=== PATIENT | female | born 1985 | race Caucasian/White ===

== ENCOUNTER → 2020-07-02 10:10 | Outpatient (CLI) | payer OTHER, SELFPAY ==
--- NOTE | ~2020-07-02 | US_ITS ---
EXAMINATION: US transvaginal DATE: 07/02/2020 10:54 INDICATION: Irregular menstruation. Comparison:No prior studies for comparison. TECHNIQUE: Multiple transabdominal and endovaginal sonographic images of the pelvis performed. FINDINGS: The uterus measures 8.5 x 4.5 x 5.2 cm. The endometrial complex measures 6 mm. The right ovary measures 2.2 x 1.9 x 3.3 cm and the left ovary measures 4 x 2.7 x 2.8 cm. There is a 1.7 cm left ovarian cyst. There is no free fluid in the pelvis. There are no abnormal masses seen on either side. IMPRESSION: 1. Left ovarian cyst measuring 1.7 cm. Reviewed, dictated and finalized at location A.
--- NOTE | ~2020-07-02 | US_ITS ---
US thyroid INDICATION: Nontoxic goiter. TECHNIQUE: Real-time sonographic images of the thyroid gland were obtained. COMPARISON: No prior studies for comparison. FINDINGS: The right thyroid lobe measures 5 x 1.5 x 1.9 cm. The left thyroid lobe measures 4.7 x 1.3 x 1.3 cm. There is normal echotexture and echogenicity throughout the thyroid gland. No discrete nod ules identified. Normal vascular flow is present. IMPRESSION: 1. Normal thyroid without discrete nodule or abnormal vascularity. Reviewed, dictated and finalized at location A.
== END ==
PROVIDERS: PCP Family Medicine; Visit Provider Internal Medicine Endocrinology, Diabetes & Metabolism
DX: N92.6 Irregular menstruation, unspecified (principal); N83.202 Unspecified ovarian cyst, left side
CPT/HCPCS: 76536; 76830

== ENCOUNTER 2022-04-16 11:54 | Emergency (ER) | payer OTHER, SELFPAY ==
[2022-04-16 12:03] VITALS: BP 90/56; PULSE 80; RESP 12; TEMP 37.5; O2SAT 99
[2022-04-16 12:04] VITALS: BP 90/56; PULSE 80; RESP 12; TEMP 37.5; O2SAT 99
--- NOTE | 2022-04-16 12:13 | ED.URI ---
HPI - URI/Sore Throat General Chief Complaint: Upper Respiratory Infection Stated Complaint: sore throat, ear pain,fever Time Seen by Provider: 04/16/22 12:03 Source: patient Mode of arrival: ambulatory Limitations: no limitations History of Present Illness HPI Narrative: Patient presents today complaining of a 2-day history of body aches, sore throat, ear pain, low-grade fever up to 99. Denies cough, congestion, rhinorrhea, shortness of breath. Patient took a home COVID-19 test this morning that was negative. She currently rates her pain 4/10 and has been taking Tylenol and ibuprofen at home with mild relief. Related Data Home Medications Medication Instructions Recorded Confirmed citalopram 20 mg tablet (Celexa) 20 mg PO DAILY 04/16/22 04/16/22 spironolactone 50 mg tablet 50 mg PO DAILY 04/16/22 04/16/22 Allergies Allergy/AdvReac Type Severity Reaction Status Date / Time No Known Allergies Allergy Unverified 04/16/22 12:03 Review of Systems Review of Systems: CONSTITUTIONAL: Denies chills, or sweats.+ Body aches, fever EYES: Denies visual changes, redness, or discharge. ENT: Denies rhinorrhea, congestion, or otalgia.+ Sore throat CARDIOVASCULAR: Denies chest pain, palpitations, or edema. RESPIRATORY: Denies cough or dyspnea. GASTROINTESTINAL: Denies abdominal pain, nausea, vomiting, or diarrhea. GENITOURINARY: Denies dysuria or hematuria. SKIN: Denies rash, itching, or wounds. MUSCULOSKELETAL: Denies back pain, joint pain, or myalgia. NEUROLOGIC: Denies headache, numbness, tingling, or weakness. PSYCH: Denies depression or anxiety. PMFSH Comments At time of signature, I have reviewed and agree with nursing past medical, surgical, social and family history unless otherwise noted. Please see nursing chart for further information. There is no relevant family history pertinent to the presenting complaint Exam Narrative: GENERAL: Well-appearing, well-nourished, and in no acute distress. HEAD: Normocephalic, atraumatic. EYES: EOMI. No redness or drainage. Conjunctivae normal. ENT: Mucous membranes pink and moist. Nares clear. No rhinorrhea. Bilateral middle ear effusions without evidence of bacterial infection. Throat normal with small amount of postnasal drainage Uvula midline. No edema or exudate. Tonsils 2+ NECK: Normal AROM. Supple. Bilateral tonsillar lymphadenopathy. CHEST: No respiratory distress. Clear to auscultation. HEART: Regular rate and rhythm. No murmur appreciated. Normal peripheral pulses. EXTREMITIES: Normal range of motion. No edema. SKIN: Warm, dry, no rash. Capillary refill normal. Normal skin turgor. NEURO: No focal deficits. Alert and oriented x3. Gait steady. PSYCH: Normal affect. No signs of depression or anxiety. Course Course Emergency Course: Declines strep swab. Level of Care: Express Care Visit Vital Signs Vital signs: Vital Signs Temperature 99.5 F 04/16/22 12:03 Pulse Rate 80 04/16/22 12:03 Respiratory Rate 12 04/16/22 12:03 Blood Pressure 90/56 L 04/16/22 12:03 Pulse Oximetry 99 04/16/22 12:03 Oxygen Delivery Room Air 04/16/22 12:03 Temperature 99.5 F 04/16/22 12:04 Pulse Rate 80 04/16/22 12:04 Respiratory Rate 12 04/16/22 12:04 Blood Pressure 90/56 L 04/16/22 12:04 Pulse Oximetry 99 04/16/22 12:04 Oxygen Delivery Room Air 04/16/22 12:04 Reviewed MDM - URI/Sore Throat Differential Diagnosis Differential diagnosis: Likely upper respiratory infection, otitis media, viral infection, influenza, pharyngitis and other (COVID-19) Lab Data Attestation: I reviewed the patient's lab results. Labs: Influenza A Screen Negative Reference Range: Negative Influenza B Screen Negative Reference Range: Negative Critical Care Time Critical Care Time Critical Care Time: No Discharge Plan Disch
== END 2022-04-16 12:33 | disposition home or self-care (01) ==
PROVIDERS: Emergency Provider Nurse Practitioner
DX: B34.9 Viral infection, unspecified (principal); F32.A Depression, unspecified
CPT/HCPCS: 87804; 99203; 99213; G0463

== ENCOUNTER 2023-11-10 13:12 | Emergency (ER) | payer OTHER, SELFPAY ==
[2023-11-10 13:17] VITALS: BP 82/62; PULSE 93; RESP 16; TEMP 36.4; O2SAT 100
[2023-11-10 13:20] VITALS: BP 101/70; PULSE 103
--- NOTE | 2023-11-10 13:36 | ED.GENADULT ---
HPI - General Adult General Chief complaint: Upper Respiratory Infection Stated complaint: Flu symptoms Source: patient, RN notes reviewed and old records reviewed Mode of arrival: ambulatory Limitations: no limitations History of Present Illness HPI narrative: 38-year-old female presents to [facility] with complaints cough, congestion, fatigue, myalgias that started 2 days ago. Patient taking dwal-ryw-erravvd medications with little relief. Patient denies chest pain, shortness of breath, dizziness, weakness Related Data Home Medications Medication Instructions Recorded Confirmed citalopram 20 mg tablet (Celexa) 20 mg PO DAILY 04/16/22 04/16/22 spironolactone 50 mg tablet 50 mg PO DAILY 04/16/22 04/16/22 drospirenone (contraceptive) 4 mg 1 tablet PO DAILY 08/21/22 (28) tablet (Slynd) Allergies Allergy/AdvReac Type Severity Reaction Status Date / Time No Known Allergies Allergy Verified 11/10/23 13:40 Review of Systems Constitutional: Constitutional: Reports no additional constitutional complaints, Reports body ache(s), Denies chills, Denies fatigue, Denies fever(s) and Denies headache(s) Eyes: Eyes: Reports no additional eye complaints and Denies blurry vision ENT: Reports system reviewed and no additional complaints, except as documented, Denies vertigo, Denies dizziness, Denies ear discharge, Denies otalgia, Denies facial pain, Denies headache(s), Reports nasal congestion, Denies nasal discharge, Denies sinus pain, Denies sinus pressure and Denies sore throat Cardiovascular: Cardiovascular: Reports no additional cardiovascular complaints, Denies chest pain, Denies chest pain at rest, Denies rapid heart rate and Denies dyspnea Respiratory: Respiratory: Reports no additional respiratory complaints, Reports chest congestion, Reports cough, Denies pain on inspiration, Denies pain with cough and Denies dyspnea Gastrointestinal: Gastrointestinal: Denies abdominal pain, Denies diarrhea, Denies nausea and Denies vomiting Integumentary/Breasts: Skin/Breast: Denies rash Neurologic: Reports system reviewed and no additional complaints, except as documented, Denies vertigo, Denies dizziness and Denies headache(s) Endocrine: Endocrine: Denies fatigue [facility] Past Medical History Medical History Abnormal uterine bleeding Anxiety Depression Surgical History Surgical History H/O melanoma excision History of breast lift Family History Family History Mother Diabetes mellitus Heart disease Father Diabetes mellitus Social History Social History Smoking status: Never smoker Alcohol intake: never Substance use: never Living arrangements: with family Occupation/Education: occupation Gender identity (if verbalized by the patient): Female Sexual Orientation (if Verbalized by the Patient): Straight or Heterosexual Comments At the time of my signature, I reviewed and agree with the nursing past medical, surgical, social, and family history. There is no relevant family history pertinent to the patient complaint. Exam Const: General: cooperative, healthy appearing, no acute distress and well nourished Nutritional Appearance: well nourished Orientation/consciousness: patient oriented x3 Limitations: no limitations HENMT: Head: normal to inspection and normocephalic Ears: external ears normal, TM's normal bilaterally, mastoids normal and Abnormal EAC present Face/Nose/Sinus: normal facial exam Face and sinus: normal facial exam Mouth: Yes Normal oral and palatal mucosa present, Yes oropharynx normal and Yes moist mucous membranes Throat: posterior oropharynx normal, tonsils normal, uvula midline and no uvular edema Eyes: General: appearance normal, both eyes and all related st
== END 2023-11-10 13:44 | disposition home or self-care (01) ==
PROVIDERS: Emergency Provider Registered Nurse; PCP Internal Medicine
DX: U07.1 COVID-19 (principal)
CPT/HCPCS: 87426; 87804; 99213; G0463

== ENCOUNTER → 2024-05-18 09:10 | Outpatient (REF) | payer OTHER, SELFPAY | LOC: ANHLAB 09:10 | PROVIDERS: PCP Internal Medicine; Visit Provider Plastic Surgery | DX: D22.5 Melanocytic nevi of trunk (principal) | CPT/HCPCS: 88305 ==

== ENCOUNTER 2025-06-08 12:17 | Outpatient (CLI) | payer OTHER, SELFPAY ==
--- NOTE | 2025-06-08 | ECG_ITS ---
Test Date: 2025-06-08 12:42:19 Measurements Intervals [place] Rate: 80 P: 57 OH: 137 QRS: 84 QRSD: 84 T: 57 QT: 343 QTc: 397 Interpretive Statements SINUS RHYTHM POSSIBLE RIGHT VENTRICULAR CONDUCTION DELAY [RSR (QR) IN V1/V2] BORDERLINE ECG No previous ECG available for comparison Electronically Signed On 06-08-2025 17:17:16 CDT by Reid Kelley M.D.
--- OUTSIDE RECORDS SUMMARY | 2025-06-08 14:03 | XMS_ITS | Clinical Summary ---
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 2 Active traZODone (DESYREL) 50 mg tablet Take 1 tablet (50 mg total) by mouth nightly Active drospirenone, contraceptive, (Slynd) tablet tablet 1 each (4 mg total) 2 Active ALPRAZolam (XANAX) 0.5 mg tablet Take 1 tablet (0.5 mg total) by mouth daily as needed 2 Active spironolactone (ALDACTONE) 100 mg tablet Take 0.5 tablets (50 mg total) by mouth daily 2 Active cyclobenzaprine (FLEXERIL) 10 mg tabletIndicatio ns:Muscle Spasm Take 1 tablet (10 mg total) by mouth 2 (two) times a day as needed for muscle spasms 10 tablet 5 Active Active Problems No known active problems Encounters Date Type Department Care Team Description 05/03/2025 7:00 PM CDT Office Visit [facility] at [address] [address] Praveena Peralta NP Acute left flank pain (Primary Dx); Acute left-sided thoracic back pain from Last 3 Months Social History Tobacco Use Types Packs/Day Years Used Date Smoking Tobacco: Never Assessed Comments Unknown Sex and Gender Information Value Date Recorded Sex Assigned at Not on file Legal Sex Female 9:10 AM CRAS Gender Identity Not on file Sexual Orientation Not on file Obstetrics History Last Filed Vital Signs Vital Sign Reading Time Taken Comments Blood Pressure 98/64 05/03/2025 7:11 PM CDT Pulse 97 05/03/2025 7:11 PM CDT Temperature 36.7 C (98.1 F) 05/03/2025 7:11 PM CDT Respiratory Rate 18 05/03/2025 7:11 PM CDT Oxygen Saturation 99% 05/03/2025 7:11 PM CDT Inhaled Oxygen Concentration - - Weight 54.7 kg (120 lb 11.2 oz) 05/03/2025 7:11 PM CDT Height 165.1 cm (5' 5) 05/03/2025 7:11 PM CDT Body Mass Index 20.09 05/03/2025 7:11 PM CDT Plan of Treatment Health Maintenance Due Date Last Done Comments Cervical Cancer Screening 1987 Depression Screening 1987 Hepatitis C Screening 1987 Varicella Vaccines (1 of 2 - 13+ 2-dose series) 2000 Regular Well Visit/Exam 18-64 2005 HPV Vaccines (1 - 3-dose SCDM series) 2014 Covid-19 Vaccine (2024- season) 2025 01/07/2021, 12/10/2020 Influenza Vaccine (#1) 2025 , 07/24/2023, 06/06/2022, Additional history exists DTaP/Tdap/Td Vaccine (8 - Td or Tdap) 01/04/2027 01/04/2017, 09/23/2016, 02/23/2003, Additional history exists Hepatitis B Screening Completed 01/26/1997 , 08/25/1996, 07/24/1996 Pneumococcal vaccine <65 Aged Out No longer eligible based on patient's age to complete this topic Procedures Procedure Name Priority Date/Time Associated Diagnosis Comments POCT URINALYSIS DIPSTICK Routine 05/03/2025 7:29 PM CDT Acute left flank pain from Last 3 Months Results * POCT urinalysis dipstick (05/03/2025 7:29 PM CDT) Color, Urine, POC Yellow Clarity, ur, POC Clear Clear Glucose, ur, POC Negative Negative Bilirubin, ur, POC Negative Negative Ketones, ur, POC Negative Negative Specific [place], POC 1.030 1.003 - 1.030 Blood, ur, POC Negative Negative pH, ur, POC 6.0 5.0 - 8.0 Protein, ur, POC Negative Negative Urobilinogen, urine, POC 0.2 0.2 - 1.0 mg/dL Nitrite, ur, POC Negative Negative Leukocytes, ur, POC Negative Negative Lot Number [id number] Urine 05/03/2025 7:29 PM CDT Praveena Peralta NP POINT OF CARE TEST ORDERABLES Final Result from Last 3 Months Insurance [employer] Care Teams Top Loader Relationship Specialty Start Date End Date Nahid León MD [address] [id number] PCP - General Internal Medicine 07/06/24
--- OUTSIDE RECORDS SUMMARY | 2025-06-08 14:03 | XMS_ITS | Clinical Summary ---
Author Organization [employer] [facility] [employer] [address] Address [address] [place] [address] Care Team Providers Care A&P Mechanic Name Role Phone Nahid León MD Primary Care Provider [phone] Allergies No known active allergies Medications norgestimate-eth inyl estradioL (ORTHO TRI-CYCLEN) 0.18/0.215/0.25 mg-35 mcg (28) tablet Take 1 Tablet by mouth daily at bedtime. Active fluticasone propionate (FLONASE) 50 mcg/spray [place], Suspension nasal inhalerIndicatio ns:Allergic rhinitis, unspecified seasonality, unspecified trigger,Acute recurrent maxillary sinusitis,Head cold Flonase nasal spray 1-2 sprays each nostril twice a day x 7-10 days 16 Gram 11 06/03/2019 Active citalopram (CeleXA) 20 mg tabletIndication s:Anxiety state Take 1 Tablet (20 mg) by mouth daily. 90 Tablet 04/10/2022 Active amitriptyline (ELAVIL) 25 mg tablet Take 0.5 Tablets (12.5 mg) by mouth daily at bedtime. 30 Tablet 05/21/2022 Active ALPRAZolam (XANAX) 0.5 mg tabletIndication s:Anxiety and depression,Anxie ty state TAKE 1 /2 tab BY MOUTH qhs for 1 week, then 1/2 tab every other day for 1 week, then stop taking before bed and only take as needed for panic attack. 90 Tablet 05/21/2022 Active trazodone HCl (TRAZODONE ORAL) Take by mouth. Active SPIRONOLACTONE ORAL Take by mouth. Active Active Problems Problem Noted Date Diagnosed Date Anxiety and depression 05/21/2022 Insomnia 05/21/2022 Acne vulgaris 05/08/2018 Encounters Date Type Department Care Team Description 05/12/2025 External Device Data [facility] ABSTRACTION Provider, Abstract 05/11/2025 External Device Data [facility] ABSTRACTION Provider, Abstract 04/28/2025 External Device Data [facility] ABSTRACTION Provider, Abstract 04/27/2025 External Device Data [facility] ABSTRACTION Provider, Abstract 04/07/2025 External Device Data [facility] ABSTRACTION Provider, Abstract 04/06/2025 External Device Data [facility] ABSTRACTION Provider, Abstract 03/23/2025 External Device Data [facility] ABSTRACTION Provider, Abstract 03/16/2025 External Device Data [facility] ABSTRACTION Provider, Abstract 03/09/2025 External Device Data [facility] ABSTRACTION Provider, Abstract from Last 3 Months Immunizations Immunization Administration Dates Next Due (ADACEL/BOOSTRIX)(10 YR UP) TDAP VACCINE, 0.5ML, IM 09/23/2016 INFLUENZA VACCINE QUADRIVALENT 6 MOS UP IM 07/23 INFLUENZA VACCINE QUADRIVALENT 6 MOS UP PF IM Family History Medical History Relation Name Comments No Known Problems Brother No Known Problems Daughter No Known Problems Father Unknown Maternal Grandfather Unknown Maternal Grandmother No Known Problems Mother No Known Problems Paternal Grandmother No Known Problems Sister No Known Problems Son Colon Cancer Neg Hx Relation Name Status Comments Brother Alive Daughter Alive Father Alive Maternal Grandfather Maternal Grandmother Mother Alive Paternal Grandfather Alive Paternal Grandmother Alive Sister Alive Son Alive Social History Tobacco Use Types Packs/Day Years Used Date Smoking Tobacco: Never Smokeless Tobacco: Never Tobacco Cessation:Counseling Given: Not Answered Alcohol Use Standard Drinks/Week Comments No 0 (1 standard drink = 0.6 oz pur e alcohol) Feeling Safe Answer Date Recorded Are you in a relationship wi th someone who hurts you emotionally and/or physically? No 11/26/2023 Comments No Sex and Gender Information Value Date Recorded Sex Assigned at Not on file Legal Sex Female 9:58 AM DIFFERENTIAL TESTER Gender Identity Not on file Sexual Orientation Not on file Last Filed Vital Signs Vital Sign Reading Time Taken Comments Blood Pressure 108/66 11/20/2024 8:52 AM DIFFERENTIAL TESTER Pulse 77 11/26/2023 11:27 AM DIFFERENTIAL TESTER Temperature 36.2 C (97.1 F) 11/26/2023 11:11 AM DIFFERENTIAL TESTER Respiratory Rate 18 11/26/2023 11:27 AM DIFFERENTIAL TESTER Oxygen Saturation 100% 11/26/2023 11:27 AM DIFFERENTIAL TESTER Inhaled Oxygen Concentration - - Weight 55.3 kg (122 lb) 11/20/2024 8:52 AM DIFFERENTIAL TESTER Height 165.1 cm (5' 5) 11/20/2024 8:52 AM DIFFERENTIAL TESTER Body Mass Index 20.3 11/20/2024 8:52 AM DIFFERENTIAL TESTER Plan of Treatment Health Maintenance Due Date Last Done Comments HPV/Cotest (21-29) 2008 HPV VACCINES (1 - 3-dose SCD M series) 2014 HPV/Cotest (30-65) 2017 INFLUENZA VACCINE (#1) 2025 , 07/06/2020, 07/23/2019 COVID-19 Vaccine (2024-2 6 season) 2025 01/07/2021, 12/10/2020 DTAP/TDAP/TD VACCINES (8 - T d or Tdap) 01/04/2027 01/04/2017, 09/23/2016, 04/21/1992, Additional history exists CERVICAL CANCER SCREENING 01/26/2027 PAP SMEAR 01/26/2027 01/27/2024, 09/2021 (Previously completed), 03/23/2017 (Previously completed) HEPATITIS B VACCINES Completed 01/26/1997, 08/25/1996, 07/24/1996 Insurance [employer] [id number] Advance Directives For more information, please contact: [phone] * Full Code (Latest Code Status on File) Date Activated Date Inactivated Comments 11/26/2023 10:26 AM 11/26/2023 1:58 PM * Full Code Date Activated Date Inactivated Comments 09/19/2020 5:53 AM 09/19/2020 9:46 AM Care Teams A&P Mechanic Relationship Specialty Start Date End Date Nahid León MD [address] [facility] [address] [place] [address] PCP - General Internal Medicine 01/31/24
--- OUTSIDE RECORDS SUMMARY | 2025-06-08 14:03 | XMS_ITS | Encounter Summary ---
Author Organization [facility] Address [address] [facility] [place] [address] Care Team Providers Care Rail Maintenance Worker Name Role Phone Bob Zhang MD Primary Care Provider Encounter Details Date Type Department Care Team (Late st Contact Info) Description 05/17/2022 Lab Requisition [facility] Care D[facility] Lab [address] [facility] [address] [facility] [place] [address] Mariano Peter MD [address] [place] [address] Social History Tobacco Use Types Packs/Day Years Used Date Smoking Tobacco: Never Smokeless Tobacco: Never Alcohol Use Standard Drinks/Week Comments Never 0 (1 standard drink = 0.6 oz pur e alcohol) Comments No Sex and Gender Information Value Date Recorded Sex Assigned at Not on file Legal Sex Female 3:46 PM CDT Gender Identity Not on file Sexual Orientation Not on file documented as of this encounter Functional Status * Is person deaf or have serious hearing difficulty? Answer Date of Assessment Author No 03/15/2022 8:15 AM KRYSTLET Arelis Gomez RN * Is person blind or have serious difficulty seeing? Answer Date of Assessment Author No 03/15/2022 8:15 AM KRYSTLET Arelis Gomez RN * Does person have serious difficulty walking/climbing stairs? Answer Date of Assessment Author No 03/15/2022 8:15 AM KRYSTLET Arelis Gomez RN * Does person have difficulty dressing/bathing? Answer Date of Assessment Author No 03/15/2022 8:15 AM CDT Arelis Gomez RN * Does person have difficulty doing errands alone? Answer Date of Assessment Author No 03/15/2022 8:15 AM CDT Arelis Gomez RN documented as of this encounter Mental Status * Does person have difficulty concentrating/remembering/making decisions? Answer Entry Date Author No 03/15/2022 8:15 AM CDT Arelis Gomez RN documented in this encounter Plan of Treatment Not on file documented as of this encounter Procedures Procedure Name Priority Date/Time Associated Diagnosis Comments DERMATOPATHOLOGY Routine 05/15/2022 3:33 AM CDT documented in this encounter Results * DERMATOPATHOLOGY (05/15/2022 3:33 AM CDT) Case Report Dermatopathology Report Case: [id number] Authorizing Provider: Mariano Peter MD Collected: 05/15/2022 03:33 AM Ordering Location: [facility] DermPath Lab Received: 05/17/2022 07:25 AM Pathologist: Magdalene Galarza MD Specimens: A) - Skin, right upper arm B) - Skin, right flank 2 1:12 PM CDT DERMATOPATHOLOGY LABORATORY Final Diagnosis Specimen A. SKIN, right upper arm: SEBORRHEIC KERATOSIS, IRRITATED AND INFLAMED (L82.0) Specimen B. SKIN, right flank: SEBORRHEIC KERATOSIS, INFLAMED (L82.0) 2 1:12 PM CDT DERMATOPATHOLOGY LABORATORY at 1312 CDT Clinical History A-B: R/O Neoplasm 2 1:12 PM CDT DERMATOPATHOLOGY LABORATORY Gross Description Specimen A: Received is one formalin filled container labeled with the patient's name and designated right upper arm. The specimen consists of a shave biopsy measuring 5x5x1 mm. Jar 0. Specimen B: Received is one formalin filled container labeled with the patient's name and designated right flank. The specimen consists of a shave biopsy measuring 6x5x1 mm. Jar 0. 2 1:12 PM CDT DERMATOPATHOLOGY LABORATORY Microscopic Description Specimen A. SKIN, right upper arm: Sections show acanthosis, papillomatosis, hyperkeratosis, and squamous eddies. There is a lymphohistiocytic infiltrate within the papillary dermis. Specimen B. SKIN, right flank: There is hyperkeratosis, parakeratosis, papillomatosis, and acanthosis of the epidermis. There is a lymphohistiocytic infiltrate within the papillary dermis that is focally lichenoid. 2 1:12 PM CDT DERMATOPATHOLOGY LABORATORY Disclaimer An external and internal positive and negative controls are appropriate for the histochemical, immunohistochemical and immunofluorescence stain(s) in this case (if any), except where stated explicitly. The performance characteristics of the stain(s) cited in this report were developed and its performance characteristic determined by the Dermatopathology Laboratory at [facility], directed by Dr. Kev Rodriguez. These tests need not be, and therefore are not, approved by the [place] Food and Drug Administration. The tests are used for clinical purposes. Billing Codes Specimen Charges Stain Charges 55455 59804 1 1 2 1:12 PM CDT DERMATOPATHOLOGY LABORATORY Embedded Images 2 1:12 PM CDT DERMATOPATHOLOGY LABORATORY Pathology/Cytology TISSUE SPECIMEN FROM SKIN / Unknown 05/15/2022 3:33 AM CDT 05/17/2022 7:25 AM CDT Miscellaneous samples (specimen) TISSUE SPECIMEN FROM SKIN / Unknown 05/15/2022 3:33 AM CDT 05/17/2022 7:25 AM CDT Mariano Peter MD LAB - PATHOLOGY/CYTOLOGY ORDERAB LES Final Result DERMATOPATHOLOGY LABORATORY [facility] - Department of Dermatology [facility] [address] [place] [address], [address] [phone] documented in this encounter Visit Diagnoses Not on filedocumented in this encounter Care Teams Rail Maintenance Worker Relationship Specialty Start Date End Date Bob Zhang MD [facility] [address] [place] [id number] PCP - General 02/26/22 documented as of this encounter
--- OUTSIDE RECORDS SUMMARY | 2025-06-08 14:03 | XMS_ITS | Encounter Summary ---
Author Organization [facility] Address [address] [place] [address] Care Team Providers Care Broach Operator Name Role Phone Bob Zhang MD Primary Care Provider Encounter Details Date Type Department Care Team (Late st Contact Info) Description 02/13/2022 Lab Requisition [facility] DermPath Lab [address] [place] [address] [place] [address] [place] [id number] Social History Tobacco Use Types Packs/Day Years Used Date Smoking Tobacco: Never Assessed Comments Unknown Sex and Gender Information Value Date Recorded Sex Assigned at Not on file Legal Sex Female 3:46 PM CDT Gender Identity Not on file Sexual Orientation Not on file documented as of this encounter Plan of Treatment Not on file documented as of this encounter Procedures Procedure Name Priority Date/Time Associated Diagnosis Comments DERMATOPATHOLOGY Routine 02/12/2022 12:0 0 AM CDT documented in this encounter Results * DERMATOPATHOLOGY (02/12/2022 12:00 AM CDT) Case Report Dermatopathology Report Case: [id number] Authorizing Provider: Mariano Peter MD Collected: 02/12/2022 12:00 AM Ordering Location: [facility] DermPath Lab Received: 02/13/2022 04:11 PM Pathologist: Magdalene Galarza MD Specimen: Skin, right upper thigh 2 3:33 PM CDT DERMATOPATHOLOGY LABORATORY Final Diagnosis Specimen A. 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 2 3:33 PM CDT DERMATOPATHOLOGY LABORATORY Gross Description Specimen A: Received is one formalin filled container labeled with the patient's name and designated right upper thigh. The specimen consists of a shave biopsy measuring [id number]. Jar 0. 2 3:33 PM T DERMATOPATHOLOGY LABORATORY Microscopic Description Specimen A. SKIN, right upper thigh: There is a proliferation of melanocytes distributed in an irregular pattern, singly and in nests, at all levels of the epidermis, highlighted by MART-1/Melan-A immunostain. This lesion is not present at the sampled margin of the specimen. There are nests of cytologically bland melanocytes within the dermis. Some of these melanocytes are concentrated around blood vessels and adnexal structures. HMB-45 highlights the intraepidermal component and shows only focal positivity in the dermal component. This case was also reviewed by Dr. Mary Rodriguez who agrees. 2 3:33 PM [facility] DERMATOPATHOLOGY LABORATORY Disclaimer An external and internal positive and negative controls are appropriate for the histochemical, immunohistochemical and immunofluorescence stain(s) in this case (if any), except where stated explicitly. The performance characteristics of the stain(s) cited in this report were developed and its performance characteristic determined by the Dermatopathology Laboratory at [facility], directed by Dr. Kev Rodriguez. These tests need not be, and therefore are not, approved by the [place] Food and Drug Administration. The tests are used for clinical purposes. Billing Codes Specimen Charges Stain Charges 35059 1 [id number] 80660 1 1 2 3:33 PM CDT DERMATOPATHOLOGY LABORATORY Embedded Images 2 3:33 PM CDT DERMATOPATHOLOGY LABORATORY Pathology/Cytolog y TISSUE SPECIMEN FROM SKIN / Unknown 02/12/2022 02/13/2022 4:11 PM CDT us Mariano Peter MD LAB - PATHOLOGY/CYTOLOGY ORDERAB LES Final Result DERMATOPATHOLOGY LABORATORY [facility] - Department of Dermatology [facility] Specialized Medicine [address] [place] [address], [address] [phone] documented in this encounter Visit Diagnoses Not on filedocumented in this encounter Care Teams Broach Operator Relationship Specialty Start Date End Date Bob Zhang MD [facility] [address] [place] [address] PCP - General 02/26/22 documented as of this encounter
--- OUTSIDE RECORDS SUMMARY | 2025-06-08 14:03 | XMS_ITS | Clinical Summary ---
Author Organization [facility] [employer] Address [address] [place] [address] Care Team Providers Care Distribution Spec Name Role Phone Bob Zhang MD Primary Care Provider [phone] Source Comments [facility] [employer],non-owned Affiliates and Associated Physician Practices is amultiple site organization consisting of ambulatory clinics and hospital sitesin [place], [place], [place] and [place]. This disclosure is being madepursuant to the Care Everywhere program and may not contain all information available regarding this patient. Last updated 18.[facility] [employer] Allergies No known active allergies Medications * Be aware that medications may not be up to date on this document. Alwaysverify current medications with the patient. 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 Cancer Staging:Clinical:Stage 0(cTis, cN0, cM0) - Unsigned Pathologic stage from 09/06/2022:Stage 0(pTis, cN0, cM0) - Signed by Logan Rushing MD on 09/06/2022 Social History Tobacco Use Types Packs/Day Years [...] Sign Reading Time Taken Comments Blood Pressure 106/65 04/01/2023 1:50 PM CDT Pulse 80 04/01/2023 1:50 PM CDT Temperature 36.8 C (98.3 F) 04/01/2023 1:50 PM CDT Respiratory Rate 12 03/15/2022 8:35 AM CDT Oxygen Saturation 97% 04/01/2023 1:50 PM CDT Inhaled Oxygen Concentration - - Weight 56.7 kg (125 lb) 04/01/2023 1:50 PM CDT Height 165.1 cm (5' 5) 04/01/2023 1:50 PM CDT Body Mass Index 20.8 04/01/2023 1:50 PM CDT Plan of Treatment Health Maintenance Due Date Last Done Comments HIV SCREENING 2002 HEPATITIS C SCREENING 05/11/2005 DTAP/TDAP/TD VACCINES (1 - Tdap) 2006 HEPATITIS B VACCINE (1 of 3 - 19+ 3-dose series) 2006 PAP SMEAR 2008 HPV VACCINE (1 - 3-dose SCDM series) 2014 DEPRESSION SCREENING 09/23/2024 COVID-19 VACCINE (1 - 2023-2 5 season) 2025 INFLUENZA VACCINE (#1) 2025 2, 07/06/2020, 07/23/2019 ZOSTER VACCINE (1 of 2) 2037 HIB VACCINE Aged Out No longer eligi ble based on patient's age to complete this topic MENINGOCOCCAL (Group B) VACCINE SHARED DECISION-MAKING Aged Out No longer eligible based on patient's age to complete this topic MENINGOCOCCAL GROUPS A/C/Y/W VACCINE Aged Out No longer eligible b ased on patient's age to complete this topic PNEUMOCOCCAL VACCINE Aged Out No long er eligible based on patient's age to complete this topic Insurance [employer] SELF PAY NO INSURANCE Member Subscriber Plan / Payer (Ef fective for All Dates) Name:Anne Zaman Member ID:Not on file Relation to Subscriber:Not on file Name:ANNE ZAMAN Subscriber ID:Not on file (Home) Address: [address] [place] [phone] Payer ID:Not on file Group ID:Not on file Type:Self Pay Address: [place], [place] Care Teams Distribution Spec Relationship Specialty Start Date End Date Bob Zhang MD [facility] [address] [place] [id number] PCP - General 02/26/22
--- OUTSIDE RECORDS SUMMARY | 2025-06-08 14:03 | XMS_ITS | Encounter Summary ---
Author Organization [facility] Address [address] [place] [address] Care Team Providers Care Dietary Aide Name Role Phone Bob Zhang MD Primary Care Provider Encounter Details Date Type Department Care Team (Late st Contact Info) Description 03/18/2024 Lab Requisition [facility] - DermPath Lab [address] [place] [id number] Mariano Peter MD [address] [place] [address] Social History Tobacco Use Types [...] of Assessment Author No 03/15/2022 8:15 AM Arelis Sandoval RN * Is person blind or have [...] Priority Date/Time Associated Diagnosis Comments DERMATOPATHOLOGY Routine 03/16/2024 12:0 0 AM CDT documented in this encounter Results * DERMATOPATHOLOGY (03/16/2024 12:00 AM CDT) Case Report Dermatopathology Report Case: [id number] Authorizing Provider: Mariano Peter MD Collected: 03/16/2024 12:00 AM Ordering Location: [facility] - Received: 03/18/2024 11:15 AM DermPath Lab Pathologist: Tonja Galarza MD Specimens: A) - Skin, right medial knee B) - Skin, riht lower abdomen 4 3:05 PM CDT DERMATOPATHOLOGY LABORATORY Amended Report Due to clerical error, site B is right lower abdomen. 4 3:05 PM CDT DERMATOPATHOLOGY LABORATORY Final Diagnosis Specimen A. SKIN, right medial knee: LENTIGINOUS MELANOCYTIC NEVUS, COMPOUND TYPE, IRRITATED (D22.71) Specimen B. SKIN, right lower abdomen: COMPOUND MELANOCYTIC PROLIFERATION; PRESENT AT MARGIN (D48.5) (see microscopic description and comment) 4 3:05 PM CDT DERMATOPATHOLOGY LABORATORY Amendment electronically signed by Tonja Galarza MD on 03/24/2024 at 1505 CDT at 1343 CDT Clinical History A-B: R/O benign nevus vs neoplasm 4 3:05 PM CDT DERMATOPATHOLOGY LABORATORY Gross Description Specimen A: Received is one formalin filled container labeled with the patient's name and designated right medial knee. The specimen consists of a shave biopsy measuring 2x2x1 mm. Jar 0. Specimen B: Received is one formalin filled container labeled with the patient's name and designated right lower abdomen. The specimen consists of a shave biopsy measuring 3x3x1 mm. Jar 0. 4 3:05 PM [facility] DERMATOPATHOLOGY LABORATORY Microscopic Description Specimen A. SKIN, right medial knee: This is a compound nevus. There is melanin pigment in the stratum corneum. There is a lentiginous proliferation of melanocytes between nevus nests of cells along the dermal epidermal junction. There is underlying fibroplasia of the papillary dermis. The intradermal component is bland in appearance and matures with depth. (Compound Bryon's Nevus) Specimen B. SKIN, right lower abdomen: Sections show a compound melanocytic proliferation. There is a lentiginous proliferation of melanocytes between irregular nests. Scattered melanocytes show evidence of upward migration within the epidermis. In the dermis there are irregular nests of melanocytes. This lesion is present at the margin of the specimen. The hematoxylin and eosin stain is reviewed; immunohistochemical stains are performed to further characterize this process. Mart1/MelanA highlights the proliferation which displays some adnexal extension. PRAME displays focal overexpression (2-3+). COMMENT: Because this lesion is present at the margin of the specimen, symmetry and circumscription can not be evaluated. Therefore, a complete but conservative re-excision is recommended to evaluate this lesion in its entirety. This case has been reviewed by Dr. Annelise Rodriguez who concurs with the diagnosis. 4 3:05 PM [facility] DERMATOPATHOLOGY LABORATORY Disclaimer An external and internal positive and negative controls are appropriate for the histochemical, immunohistochemical and immunofluorescence stain(s) in this case (if any), except where stated explicitly. The performance characteristics of the stain(s) cited in this report were developed and its performance characteristic determined by the Dermatopathology Laboratory at [facility], directed by Dr. Kev Rodriguez. These tests need not be, and therefore are not, approved by the [place] Food and Drug Administration. The tests are used for clinical purposes. Billing Codes Specimen Charges Stain Charges 72508 82783 1 1 [id number] 35619 1 1 4 3:05 PM CDT DERMATOPATHOLOGY LABORATORY Embedded Images 3:05 PM CDT DERMATOPATHOLOGY LABORATORY Pathology/Cytology TISSUE SPECIMEN FROM SKIN / Unknown 03/16/2024 03/18/2024 11:15 AM CDT Miscellaneous samples (specimen) TISSUE SPECIMEN FROM SKIN / Unknown 03/16/2024 03/18/2024 11:15 AM CDT Mariano Peter MD LAB - PATHOLOGY/CYTOLOGY ORDERAB LES Edited Result - Final DERMATOPATHOLOGY LABORATORY [facility] - Department of Dermatology [facility] Specialized Medicine [address] [place] [address], [address] [phone] documented in this encounter Visit Diagnoses Not on filedocumented in this encounter Care Teams Dietary Aide Relationship Specialty Start Date End Date Bob Zhang MD [facility] [place] [address] PCP - General 02/26/22 documented as of this encounter
== END 2025-06-08 12:18 | disposition home or self-care (01) ==
PROVIDERS: PCP Internal Medicine
DX: F33.1 Major depressive disorder, recurrent, moderate (principal)
CPT/HCPCS: 93005